=== PATIENT | male | born 1985 | race Two or more races ===

== ENCOUNTER 2024-08-17 07:42 | Day surgery (SDC) | payer OTHER ==
[2024-08-17 09:22] VITALS: TEMP 97.1
[2024-08-17] MEDS ORDERED: IOPAMIDOL M300 15ML VIAL ONE (09:46)
[2024-08-17] MEDS ORDERED: methylPREDNISolone ACETATE 80 MG/ML 1 ML VIAL ONE (09:46)
--- NOTE | 2024-08-17 10:03 | P.PCN ---
Description of Procedure: PREOPERATIVE DIAGNOSIS: 1- Lumbar Degenerative Disc Diseases 2-Lumbar spondylosis with Facet arthropathy without myelopathy. 3-lumbar spinal stenosis POSTOPERATIVE DIAGNOSIS: 1-lumbar degenerative disc disease. 2-lumbar spondylosis with facet arthropathy without myelopathy. 3-lumbar spinal stenosis. PROCEDURE Injection of radio contrast material into L4-5 interspace, interpretation of epidurogram, injection of steroid at L4- 5 epidural space under fluoroscopic guidance. ANESTHESIA: Lidocaine 1% subcutaneously. In OR continuous pulse ox, EKG, blood pressure and verbal communication was maintained with the patient. EBL: Minimal PROCEDURE INDICATION: Before the procedure were discussed with the patient detailed procedure, alternatives, complications including infection, bleeding, nerve damage, paralysis all of which could be permanent. Patient understands and all questions were answered. PROCEDURE DESCRIPTION : After getting consent, patient in OR in prone position. Back was prepped with chlorhexidine and draped in sterile fashion. After injecting 10 mL of 1% lidocaine subcutaneously, a 20-gauge Tuohy needle was introduced at L4 5 interspace with loss of resistance technique using a syringe filled with air. Negative CSF, negative blood, negative paresthesia. Needle position was confirmed with AP and lateral view of the fluoroscope. After repeat negative aspiration 2 mL of Omnipaque 200 water soluble contrast was injected. Contrast was noted in the epidural space. No contrast was noted into intrathecal or intravascular space. After repeat negative aspiration 6 mL solution was injected intermittently which consists of 5 mL of preservative-free normal saline mixed with 1 mL of 80 mg Depo-Medrol. Needle was withdrawn intact. Skin was cleansed and Band-Aids was applied. DISPOSITION / PLANS: The patient tolerated the procedure well. No complication. The patient was placed in a supine position and transferred to the recovery area in a stable condition for observation. There was no evidence of lower extremity motor or sensory deficit after the procedure. Patient was discharged from the recovery room after meeting discharge criteria. Home discharge instructions were given to the patient by the staff. The patient was reexamined prior to discharge. The patient will schedule a follow up in the clinic in 2-4 weeks.
[2024-08-17 10:21] VITALS: BP 127/78; PULSE 76; RESP 16
--- NOTE | 2024-08-17 10:37 | FL ---
EXAMINATION TYPE: FL guided pain mgmt statistic DATE OF EXAM: 08/17/2024 10:00 AM COMPARISON: Pre Operative Images if available both CT/MRI or plain film CLINICAL INDICATION: Male, 38 years old with history of LUMBAR EPIDURAL STEROID INJECTION; TECHNIQUE: FL guided pain mgmt statistic, multiple fluoroscopic images provided for procedure. DAP: 0.50390 mGym2 Gycm2 uGym2 cGycm2 or equivalent. FINDINGS: Fluoroscopic images during injection for pain management demonstrate multilevel degeneration changes throughout the spine. No evidence for fracture. No acute process identified. IMPRESSION: 1. No evidence for intraoperative complication. 2. Please see the operative/procedural note for further details. [facility], , 08/17/2024 10:35 AM
--- NOTE | 2024-08-21 12:30 | P.PAINPG ---
PQRS Measure Charge Sheet Comment: HISTORY OF PRESENT ILLNESS: A 38 yr old incarcerated male w 2 guards at side as a referral from Dr Holman presents today w severe and chronic LBP s/p fall secondary to radiculopathy, spondylosis and facet arthropathy without myelopathy for evaluation. Pt states pain level is provoked at 7 /10 in intensity, constant, localized in the lower lumbar spine, predominantly axial, sharp in character w occasional shooting pain towards the BLEs. Pain is provoked by bending, lifting, twisting. Pain is alleviated by PT x 2 wks which started in Jul 2024, physician guided stretches daily since Jul 2024, medications, repositioning and rest . Oswestry axial pain score at 35. PMH: OA, GERD, MDD, Seasonal Allergies PSH: Denies SH: Negative x3 FH: Non contributory All: See list Meds: See list incl Ibu 400mg, Robaxin 500mg, Elavil 50mg REVIEW OF ORGAN SYSTEMS: CONSTITUTIONAL: No fevers or chills. No recent weight loss. NEUROLOGICAL: + numbness and tingling along the distal extremities. No seizure disorders or headaches. MUSCULOSKELETAL: + pain PSYCHIATRIC: Denies current depression or suicidal thoughts. Physical Examinations : Constitutional : Cooperative , not in acute distress . Neurologic : Cranial nerve II to XII intact. No focal neurological deficits. Psychiatric : alert & oriented x 3. Matching mood & appropriate affect. Judgment & insight intact. Musculoskeletal : Cervical Spine Motor strength in the deltoid and biceps: Normal right side. Normal Left side Motor strength biceps and the wrist extensors: Normal right side . Normal left side Motor strength in the triceps muscle: Normal right side. Normal left side Deep tendon reflexes: Normal at the biceps. Normal at Brachioradialis. Normal at triceps Vertebral body tenderness to deep palpation over Cervical facet loading test: positive bilaterally Spurling test: positive bilaterally Neck distraction test: positive bilaterally Hilda sign: positive bilaterally Lumbar spine Motor strength lower extremities ,thigh and legs 5/5 Right side , 5/5 Left side Deep tendon reflexes : Normal Knee Jerk. Normal Ankle Jerk Vertebral body tenderness over L4 Ram Test positive BL L4-L5 Lumbar facet Loading Test: positive Right / positive Left Range of motion of the lumbar spine Flexion 30 degrees, extension 10 degrees Straight Leg Raise test: Left/ Right positive at degrees Roly test: positive right / positive left. Severe tenderness over the Sacroiliac joint on the Right / Left sides Gaenslen test: positive bilaterally Seated flexion test: positive bilaterally. Sacral spine : Severe tenderness over the Sacroiliac joint: right side / left side Range of motion: Flexion of the lumbar spine <60 degrees Range of motion: Extension of the lumbar spine <20 degrees Gaenslen's Test positive Roly test: positive right side / left side Thigh Thrust Test Sacral Thrust Test Imaging: MRI non contrast lumbar spine from 04/26/24 reviewed Assessment/ Plan : L3-L5 radiculopathy w L4-L5 disc collapse Recommendation of NATALIE L4-L5 #1. Risks, benefits of procedure discussed and patient verbalized understanding. Admits to anti- coagulant use or medical history of diabetes. Protocol for discontinuation/ continuation of medications cindy procedure discussed. All questions answered. I have spent greater than 30 minutes on patient care today. Dr Russell was available by phone for the evaluation of this patient. The time was used to review the medical records including relevant urine studies and Prescription history (MAPs), review of the available imaging, evaluation and examination of the patient, coordination of care with the medical staff and if applicable referring physicians, as well as creation of the medical record - Pain Location Right Lower Back Non-Pharmacological Interventions: Home Exercise, Inactivity, Physical Therapy, Stretching Pharmacological Interventions: Epidural, PRN Medication Home Medications: Ambulatory Orders Amitriptyline HCl 50 mg PO HS 08/17/24 Naproxen Sodium [Naproxen Sodium ER] 500 mg PO DAILY 08/17/24 methocarbamoL [Robaxin] 1,000 mg PO BID 08/17/24 Controlled Substance Measures - Controlled Substance Measures Is patient prescribed a controlled substance at discharge?: No
== END 2024-08-17 10:37 | disposition home or self-care (01) ==
LOC: PNWHC3 07:42 → EDSTATUS 08:00 → PNWHC3 10:37
PROVIDERS: ATTEND Pain Medicine Interventional Pain Medicine
DX: M48.061 Spinal stenosis, lumbar region without neurogenic claudication (principal); M51.16 Intervertebral disc disorders with radiculopathy, lumbar region; M47.26 Other spondylosis with radiculopathy, lumbar region; W19.XXXA Unspecified fall, initial encounter; E11.9 Type 2 diabetes mellitus without complications
CPT/HCPCS: 62323; 99211; Q9967; J1010

== ENCOUNTER → 2024-10-18 | Outpatient (CLI) | payer OTHER ==
[2024-10-18 08:01] VITALS: BP 150/92; PULSE 65; RESP 16; TEMP 97.3
--- NOTE | 2024-10-18 15:59 | P.PAINPG ---
PQRS Measure Charge Sheet Comment: HISTORY OF PRESENT ILLNESS: A 38 yr old incarcerated male w 2 guards at side presents today w severe and chronic LBP s/p fall secondary to radiculopathy, spondylosis and facet arthropathy without myelopathy for evaluation s/p NATALIE L4-L5 #1. Pt states he experienced 90 % pain relief x 1 mo s/p procedure. Pt states pain level is provoked at 7 /10 in intensity, constant, localized in the lower lumbar spine, predominantly axial, stabbing/ aching in character w occasional shooting pain towards the BLEs and feet numbness. Pain is provoked by bending. Pain is alleviated by PT x 2 wks which started in Jul 2024, physician guided stretches daily since Jul 2024, medications, repositioning and rest . Oswestry axial pain score at 35. Interventional procedures include NATALIE L4-L5 x1 (08/22) Medications include Ibu 400mg, Naproxen, Robaxin 500mg, Elavil 50mg REVIEW OF ORGAN SYSTEMS: CONSTITUTIONAL: No fevers or chills. No recent weight loss. NEUROLOGICAL: + numbness and tingling along the distal extremities. No seizure disorders or headaches. MUSCULOSKELETAL: + pain PSYCHIATRIC: Denies current depression or suicidal thoughts. Physical Examinations : Constitutional : Cooperative , not in acute distress . Neurologic : Cranial nerve II to XII intact. No focal neurological deficits. Psychiatric : alert & oriented x 3. Matching mood & appropriate affect. Judgment & insight intact. Musculoskeletal : Cervical Spine Motor strength in the deltoid and biceps: Normal right side. Normal Left side Motor strength biceps and the wrist extensors: Normal right side . Normal left side Motor strength in the triceps muscle: Normal right side. Normal left side Deep tendon reflexes: Normal at the biceps. Normal at Brachioradialis. Normal at triceps Vertebral body tenderness to deep palpation over Cervical facet loading test: positive bilaterally Spurling test: positive bilaterally Neck distraction test: positive bilaterally Hilda sign: positive bilaterally Lumbar spine Motor strength lower extremities ,thigh and legs 5/5 Right side , 5/5 Left side Deep tendon reflexes : Normal Knee Jerk. Normal Ankle Jerk Vertebral body tenderness over L4 Ram Test positive BL L4-L5 Lumbar facet Loading Test: positive Right / positive Left Range of motion of the lumbar spine Flexion 30 degrees, extension 10 degrees Straight Leg Raise test: Left/ Right positive at degrees Roly test: positive right / positive left. Severe tenderness over the Sacroiliac joint on the Right / Left sides Gaenslen test: positive bilaterally Seated flexion test: positive bilaterally. Sacral spine : Severe tenderness over the Sacroiliac joint: right side / left side Range of motion: Flexion of the lumbar spine <60 degrees Range of motion: Extension of the lumbar spine <20 degrees Gaenslen's Test positive Roly test: positive right side / left side Thigh Thrust Test Sacral Thrust Test Imaging: MRI non contrast lumbar spine from 04/26/24 reviewed Assessment/ Plan : L3-L5 radiculopathy w L4-L5 disc collapse Recommendation of NATALIE L4-L5 #2. Risks, benefits of procedure discussed and patient verbalized understanding. Admits to anti- coagulant use or medical history of diabetes. Protocol for discontinuation/ continuation of medications cindy procedure discussed. All questions answered. I have spent greater than 30 minutes on patient care today. Dr Russell was available by phone for the evaluation of this patient. The time was used to review the medical records including relevant urine studies and Prescription history (MAPs), review of the available imaging, evaluation and examination of the patient, coordination of care with the medical staff and if applicable referring physicians, as well as creation of the medical record - Pain Location Bilateral Lower Back Non-Pharmacological Interventions: Exercise, Home Exercise, Inactivity, Physical Therapy, Stretching Pharmacological Interventions: Epidural, PRN Medication, Topical Medication PQRS Narrative: Hx Alcohol Use (MH) No Home Medications: Ambulatory Orders Amitriptyline HCl 50 mg PO HS 08/17/24 Naproxen Sodium [Naproxen Sodium ER] 500 mg PO DAILY 08/17/24 methocarbamoL [Robaxin] 1,000 mg PO BID 08/17/24 Controlled Substance Measures - Controlled Substance Measures Is patient prescribed a controlled substance at discharge?: No
== END ==
LOC: PNWHC3 07:43
PROVIDERS: ATTEND Specialist
DX: M47.26 Other spondylosis with radiculopathy, lumbar region (principal); M48.56XA Collapsed vertebra, not elsewhere classified, lumbar region, initial encounter for fracture
CPT/HCPCS: 99211

== ENCOUNTER 2024-11-14 11:03 | Day surgery (SDC) | payer OTHER ==
[~2024-11-14 11:03] MED LIST: LACTATED RINGERS 1,000 ML IV SCH
[2024-11-14 11:16] VITALS: RESP 16; TEMP 97.2
[2024-11-14] MEDS ORDERED: methylPREDNISolone ACETATE 80 MG/ML 1 ML VIAL ONE (11:36)
[2024-11-14] MEDS ORDERED: IOPAMIDOL M300 15ML VIAL ONE (11:36)
[2024-11-14 12:12] VITALS: BP 135/78; PULSE 69
--- NOTE | 2024-11-14 13:24 | FL ---
Fluoroscopy INDICATION: Pain FINDINGS: Fluoroscopy time: 6.4 seconds. Total dose area product (DAP) in uGy*m?, mGy*cm? (or similar): 0.95415 Images obtained: 2. Images document needle directed towards the lower lumbar spine IMPRESSION: 1. Documentation of fluoroscopy. [facility], , 11/14/2024 1:22 PM
== END 2024-11-14 12:04 ==
LOC: ORPAIN 11:03
PROVIDERS: ATTEND Pain Medicine Interventional Pain Medicine
DX: M51.369 Other intervertebral disc degeneration, lumbar region without mention of lumbar back pain or lower extremity pain (principal); M47.816 Spondylosis without myelopathy or radiculopathy, lumbar region; M48.061 Spinal stenosis, lumbar region without neurogenic claudication
CPT/HCPCS: 62323; Q9967; J1010